=== PATIENT | female | born 1960 | race Caucasian/White ===

== ENCOUNTER 2016-03-31 15:53 | Emergency (ER) | payer BC, OTHER ==
[~2016-03-31] VITALS: Ht 165.1 cm; Wt 51.4 kg
[~2016-03-31 15:53] MED LIST: CIPR-255 PO
[2016-03-31 15:56] VITALS: TEMP 36.9; Ht 165.1 cm; Wt 51.4 kg
[2016-03-31 18:18] LABS: BASO % 0.4 %; BASO ABS # 0.03 K/uL (0-0.2); COMPLETE YES; EOS % 0.9 %; HEMATOCRIT 36.2 % (37-47); IG% 0.1 %; LYMPH % 18.4 %; LYMPH ABS # 1.26 K/uL (1.2-3.4); MEAN CELL VOLUME 91.2 fL (80-100); MEAN CORPUSCULAR HEMOGLOBIN 30.2 pg (25-34); MEAN CORPUSCULAR HGB CONC 33.1 g/dl (32-36); MEAN PLATELET VOLUME 9.6 fL (7.4-10.4); MONO % 8.1 %; NEUT % 72.1 %; PLATELET COUNT 250 K/uL (130-400); RED BLOOD COUNT 3.97 M/uL (4.2-5.4); WHITE BLOOD COUNT 6.83 K/uL (4.8-10.8)
[2016-03-31] MEDS ORDERED: CLON0.5T3 PO (18:20)
[2016-03-31 18:34] LABS: PARTIAL THROMBOPLASTIN RATIO 1.1; PROTHROMBIN TIME (PATIENT) 10.9 SECONDS (9.0-12.0)
[2016-03-31 18:36] LABS: BUN/CREATININE RATIO 14.1 (10-20); CALCIUM 9.2 mg/dl (8.5-10.1); CREATININE 0.66 mg/dl (0.60-1.20); POTASSIUM 3.4 mmol/L (3.5-5.1)
[2016-03-31 18:46] VITALS: BP 120/72; PULSE 68; O2SAT 100
[2016-03-31 18:46] LABS: ALB/GLOB RATIO 1.1 (0.9-2); THYROID STIMULATING HORMONE 1.26 uIu/ml (0.300-4.500)
--- NOTE | 2016-03-31 19:01 | EMERGENCY ROOM VISIT NOTE ---
History First contact with patient: 17:37 Chief Complaint: ED VAG BLEEDING Stated Complaint: HEAVY MENSTRUAL BLEEDING History of Present Illness The patient is a 55 year old female who presents to the Emergency Room with complaints of heavy vaginal bleeding. The patient reports that she has been having abnormal periods for the past year. She states that they have been closer together and heavier. She states that she has now had her period for 2 days and it has been very heavy. Yesterday, she was filling a super tampon every 2-3 hours. She states that today, she has been changing it every 1 hour. She sees her primary care provider for gynecological concerns. She called her primary care provider in the [facility] to make her an appointment tomorrow. The patient states that she is concerned she may be hemorrhaging. She denies any weakness or lightheadedness. She denies any history of anemia. She denies any abdominal pain or urinary symptoms. She has a history of fibroids. She denies history of bleeding disorders or anticoagulant use. Review of Systems A complete 10-point Review of Systems was discussed with the patient, with pertinent positives and negatives listed in the History of Present Illness. All remaining Review of Systems questions can be considered negative unless otherwise specified. Past Medical/Surgical History Medical Problems: (1) No Known Active Medical Problems Social History Smoking Status: Never Smoker Marital Status: Housing Status: lives with family Current/Historical Medications Miscellaneous Medications Clonazepam (Klonopin), 0.5 MG PO Allergies Coded Allergies: Sulfamethoxazole w/Trimethoprim (Verified Allergy, Intermediate, nightmares, 03/31/16) Uncoded Allergies: N (Allergy, Unknown, 04/25/02) NKA (Allergy, Unknown, 04/25/02) Physical Exam Vital Signs Date Time Temp Pulse Resp B/P Pulse Ox O2 Delivery O2 Flow Rate FiO2 03/31/16 18:46 68 18 120/72 100 Room Air 03/31/16 15:56 36.9 74 18 149/79 99 Room Air Physical Exam VITALS: Vitals are noted on the nurse's note and reviewed by myself. Vital signs stable. GENERAL: This is a 55-year-old female, in no acute distress, nondiaphoretic, well-developed well-nourished. SKIN: Capillary reflex less than 2 seconds. HEART: Regular rate and rhythm without murmurs gallops or rubs. LUNGS: Clear to auscultation bilaterally without wheezes, rales or rhonchi. ABDOMEN: Positive bowel sounds x 4. Soft, nontender to palpation. PELVIC: Moderate amount of dark red blood within the vaginal vault. The cervix is normal in appearance. NEURO: Patient was alert and oriented to person place and time. Medical Decision & Procedures Laboratory Results 03/31/16 18:00 Red Blood Count 3.97, Mean Corpuscular Volume 91.2, Mean Corpuscular Hemoglobin 30.2, Mean Corpuscular Hemoglobin Concent 33.1, Mean Platelet Volume 9.6, Neutrophils (%) (Auto) 72.1, Lymphocytes (%) (Auto) 18.4, Monocytes (%) (Auto) 8.1, Eosinophils (%) (Auto) 0.9, Basophils (%) (Auto) 0.4, Neutrophils # (Auto) 4.92, Lymphocytes # (Auto) 1.26, Monocytes # (Auto) 0.55, Eosinophils # (Auto) 0.06, Basophils # (Auto) 0.03 03/31/16 18:00 Test 03/31/16 18:00 White Blood Count 6.83 K/uL (4.8-10.8) Red Blood Count 3.97 M/uL (4.2-5.4) Hemoglobin 12.0 g/dL (12.0-16.0) Hematocrit 36.2 % (37-47) Mean Corpuscular Volume 91.2 fL (80-100) Mean Corpuscular Hemoglobin 30.2 pg (25-34) Mean Corpuscular Hemoglobin Concent 33.1 g/dl (32-36) Platelet Count 250 K/uL (130-400) Mean Platelet Volume 9.6 fL (7.4-10.4) Neutrophils (%) (Auto) 72.1 % Lymphocytes (%) (Auto) 18.4 % Monocytes (%) (Auto) 8.1 % Eosinophils (%) (Auto) 0.9 % Basophils (%) (Auto) 0.4 % Neutrophils # (Auto) 4.92 K/uL (1.4-6.5) Lymphocytes # (Auto) 1.26 K/uL (1.2-3.4) Monocytes # (Auto) 0.55 K/uL (0.11-0.59) Eosinophils # (Auto) 0.06 K/uL (0-0.5) Basophils # (Auto) 0.03 K/uL (0-0.2) RDW Standard Deviation 42.1 fL (36.4-46.3) RDW Coefficient of Variation 12.7 % (11.5-14.5) Immature Granulocyte % (Auto) 0.1 % Immature Granulocyte # (Auto) 0.01 K/uL (0.00-0.02) Prothrombin Time 10.9 SECONDS (9.0-12.0) Prothromb Time International Ratio 1.0 (0.9-1.1) Activated Partial Thromboplast Time 28.7 SECONDS (21.0-31.0) Partial Thromboplastin Ratio 1.1 Urine Color YELLOW Urine Appearance CLEAR (CLEAR) Urine pH 7.5 (4.5-7.5) Urine Specific [place] 1.000 (1.000-1.030) Urine Protein NEG (NEG) Urine Glucose (UA) NEG (NEG) Urine Ketones NEG (NEG) Urine Occult Blood 1+ (NEG) Urine Nitrite NEG (NEG) Urine Bilirubin NEG (NEG) Urine Urobilinogen NEG (NEG) Urine Leukocyte Esterase NEG (NEG) Urine WBC (Auto) 0 /hpf (0-5) Urine RBC (Auto) 0-4 /hpf (0-4) Urine Hyaline Casts (Auto) 0 /lpf (0-5) Urine Epithelial Cells (Auto) 5-10 /lpf (0-5) Urine Bacteria (Auto) NEG (NEG) Urine Test NEG (NEG) Anion Gap 10.0 mmol/L (3-11) Est Creatinine Clear Calc Drug Dose 80.0 ml/min Estimated GFR () 116.9 Estimated GFR (Non- 100.9 BUN/Creatinine Ratio 14.1 (10-20) Calcium Level 9.2 mg/dl (8.5-10.1) Total Bilirubin 0.4 mg/dl (0.2-1) Aspartate Amino Transf (AST/SGOT) 17 U/L (15-37) Alanine Aminotransferase (ALT/SGPT) 24 U/L (12-78) Alkaline Phosphatase 44 U/L (45-117) Total Protein 7.4 gm/dl (6.4-8.2) Albumin 3.9 gm/dl (3.4-5.0) Globulin 3.5 gm/dl (2.5-4.0) Albumin/Globulin Ratio 1.1 (0.9-2) Thyroid Stimulating Hormone (TSH) 1.260 uIu/ml (0.300-4.500) Medical Decision Differential diagnosis includes bleeding disorder, fibroids, menorrhagia, menopause, thyroid disorder, among others. The patient was evaluated as above. Labs were drawn and IV access was obtained. Labs revealed no anemia. There was no evidence of clotting disorder. TSH was within normal limits. A pelvic exam was unremarkable. After I told the patient that her blood counts were normal, she was very relieved and requested to go home. She is not having significant pain and while she may require an ultrasound in the future, I do not think that she needs one emergently. She will follow-up with her primary care provider tomorrow. She will return for any worsening symptoms. She verbalized understanding and was discharged home in good condition. Impression Primary Impression: Menorrhagia Departure Information Dispostion Home / Self-Care Condition GOOD Referrals Haleigh Hood (PCP) Patient Instructions My [facility] Additional Instructions You were evaluated in the emergency Department today for vaginal bleeding. Your blood work did not show any significant abnormalities. You will need to follow-up with your primary care provider within the next 1-2 days. You may require a referral to MOTOR [employer]SEM[employer] SUPERVISOR. You should return to the emergency department with worsening vaginal bleeding, pelvic pain, or any other new/concerning symptoms.
[2016-03-31 19:23] LABS: URINE APPEARANCE CLEAR (CLEAR); URINE BILIRUBIN NEG (NEG); URINE COLOR YELLOW; URINE NITRITE NEG (NEG); URINE PH 7.5 (4.5-7.5); UROBILINOGEN NEG (NEG); ZZUR CULT IF INDIC CLEAN CATCH NO
[2016-03-31 19:26] LABS: MANUAL MICROSCOPIC REQUIRED? NO; REVIEW REQ? NO
[2016-06-22] MEDS ORDERED: MAGN1TAB41 PO (11:09)
[2016-06-22] MEDS ORDERED: CHOL2000 PO (11:09)
[2016-06-22] MEDS ORDERED: OMEG10007 PO (11:09)
[2016-06-22] MEDS ORDERED: VNTHFA/IN INH (11:11)
== END 2016-03-31 19:15 | disposition home or self-care (01) ==
LOC: C.EDB 15:54
DX: N92.0 Excessive and frequent menstruation with regular cycle (principal)

== ENCOUNTER → 2016-04-12 | Outpatient (CLI) | payer BC ==
[~2016-04-12] MED LIST changes: +CHOL2000 PO; -CIPR-255 PO; +CLON0.5T3 PO; +MAGN1TAB41 PO; +OMEG10007 PO; +VNTHFA/IN INH
--- NOTE | 2016-04-12 11:42 | DIAGNOSTIC IMAGING REPORT ---
EXAMINATION: PELVIC ULTRASOUND CLINICAL HISTORY: Menorrhagia COMPARISON STUDY: None FINDINGS: The uterus measured 10.7 x 7.3 x 7.7 cm. There are multiple large fibroids. There are 3 right-sided fibroids measuring 3.7 x 2.3 x 1.8 cm. There is a pedunculated left fibroid measuring 2.5 cm as well as a 17 mm left-sided fibroid.. The endometrial stripe measured 18 mm. The right ovary measured 37 x 42 x 17 mm. There is a 3 cm right ovarian cyst, containing either a mural nodule or internal debris... The left ovary measured 29 x 23 x 37 mm.. There is no ultrasonographic evidence of ovarian torsion. It should be noted that ovarian torsion can be present with normal Doppler ultrasonographic findings. There was no evidence of pathologic free pelvic fluid. IMPRESSION: 1. Distortion of the uterus secondary to multiple fibroids. Also evident is a pedunculated 17 mm left-sided fibroid 2. Mild thickening of the endometrial stripe measuring 18 mm 3. 3 cm complex right ovarian cyst containing internal debris versus a mural nodule. A 6 week follow-up study is recommended. Electronically signed by: Shabbir Hayden M.D. 04/12/2016 11:40 AM Dictated Date/Time: 04/12/2016 11:35 AM
== END | disposition home or self-care (01) ==
LOC: C.ULTR 10:10
PROVIDERS: ATTEND Nurse Practitioner Family
DX: N92.0 Excessive and frequent menstruation with regular cycle (principal); Q51.9 Congenital malformation of uterus and cervix, unspecified; D25.9 Leiomyoma of uterus, unspecified; N83.201 Unspecified ovarian cyst, right side

== ENCOUNTER → 2016-05-02 | Outpatient (CLI) | payer BC | END | disposition home or self-care (01) | LOC: C.PAPS 15:57 | PROVIDERS: ATTEND Obstetrics & Gynecology | DX: N92.0 Excessive and frequent menstruation with regular cycle (principal) ==

== ENCOUNTER → 2016-05-02 | Outpatient (CLI) | payer BC | END | disposition home or self-care (01) | LOC: C.PATHSPEC 13:48 | PROVIDERS: ATTEND Obstetrics & Gynecology | DX: N92.0 Excessive and frequent menstruation with regular cycle (principal) ==

== ENCOUNTER → 2016-08-01 | Day surgery (SDC) | payer BC ==
[2016-06-22 11:09] VITALS: Ht 162.6 cm; Wt 50.0 kg
[~2016-08-01] VITALS: Ht 162.6 cm; Wt 50.0 kg
[~2016-08-01] MED LIST changes: +ATROPINE SULFATE 0.1 MG/ML 5ML SYR IV PRN; +DEXAMETHASONE SOD INJ 4 MG/ML VIAL ONE; +EpHEDrine SULFATE INJ 50 MG/ML AMP IV PRN; +FENTANYL CITRATE INJ 50 MCG/1 ML 2 ML VIAL IV PRN; +FENTANYL CITRATE INJ 50 MCG/1 ML 2 ML VIAL ONE; +IBUPROFEN 600 MG TAB PO PRN; +LACTATED RINGER'S 1000ML 1,000 ML IV SCH; +LIDOCAINE HCL 2% 2 ML VIAL (20MG/ML) ONE; +MIDAZOLAM HCL 1 MG/ML 2ML VIAL ONE; +ONDANSETRON INJ 2 MG/ML 2 ML VIAL IV PRN; +ONDANSETRON INJ 2 MG/ML 2 ML VIAL ONE; +OXYCODONE/ACETAMINOPHEN 5-325 TAB PO PRN; +PROMETHAZINE HCL INJ 25 MG in SODIUM CHLORIDE 0.9% 50ML 50 ML IV PRN; +PROPOFOL IV EMULSION 10 MG/ML 20 ML VIAL IV ONE; +SODIUM CHLORIDE 0.9% 1000ML 1,000 ML IV SCH
--- NOTE | 2016-08-01 06:57 | History & Physical Bridge - SC ---
H&P Re-Evaluation Bridge Note: I have examined the patient, reviewed the History & Physical and in the interval since the performance of the History & Physical I have noted the following changes of clinical significance: No changes noted
--- NOTE | 2016-08-01 07:32 | [facility] Post Operative Brief Note ---
Immediate Operative Summary Operative Date August 01, 2016. Pre-Operative Diagnosis Endometrial Polyp Post-Operative Diagnosis Same Procedure(s) Performed Dilatation And Curettage, Hysteroscopy, Polypectomy Surgeon Dr. Rodriguez Railroad Inspector Surgeon(s) None Estimated Blood Loss 5 mL Findings Uterus sounded to 9cm. Bilateral tubes visualized. 2 polyps visualized - one anterior and one posterior. Small amount of endometrial curettings obtained. Specimens A. Endometrial Curettage Drains bladder drained prior to procedure 5cc Anesthesia general Complication(s) None Disposition Recovery Room / PACU
--- NOTE | 2016-08-01 07:35 | Discharge Instructions-SurgCtr ---
Discharge Instructions Date of Service August 01, 2016. Visit Reason for Visit: Uterine Polyp Discharge Discharge Diagnosis / Problem: uterine polyp Discharge Goals Goal(s): Diagnostic testing, Therapeutic intervention Activity Recommendations Activity Limitations: per Instructions/Follow-up section Anesthesia . Post Anesthesia Instructions: If you have had General Anesthesia or IV Sedation: * Do not drive today. * Resume driving when surgeon permits. * Do not make important decisions or sign legal documents today. * Call surgeon for: 1. Temperature elevations greater than 101 degrees F. 2. Uncontrollable pain. 3. Excessive bleeding. 4. Persistent nausea and vomiting. 5. Medication intolerance (nausea, vomiting or rash). * For nausea and vomiting use only clear liquids such as: tea, soda, bouillon until nausea subsides, then gradually increase diet as tolerated. * If you have any concerns or questions, call your surgeon's office. If physician is unavailable and it is an emergency, call 911 or go to the nearest emergency room. . Instructions / Follow-Up Instructions / Follow-Up ACTIVITY RECOMMENDATIONS: * Avoid tampons, douching, hot tubs, pools, and intercourse until bleeding has stopped. * May shower as usual. * No strenuous activity for 24-48 hours. After 24-48 hours, you may do anything you feel like doing (driving and sports are okay). SPECIAL CARE INSTRUCTIONS: Special Diet: * Mild nausea may occur in the immediate post-operative period. * Take clear liquids such as tea, cola or bouillon until all nausea has subsided; you may then resume your normal diet. Special Care: * Light bleeding and vaginal spotting can last from a few days to 3-4 weeks. Call your doctor if bleeding becomes heavier than the heaviest part of your period. * Check your temperature twice a day for one week. If it goes above 100.4 degrees Fahrenheit (38.0 Celsius), notify your doctor. * Call your doctor's office for an appointment for 2 weeks after your surgery. FOLLOW-UP VISIT: Call your doctor's office for an appointment for 2 weeks after your surgery. Diet Recommendations Home Diet: resume previous diet Procedures Procedures Performed: Dilatation And Curettage, Hysteroscopy, Polypectomy Pending Studies Studies pending at discharge: yes List of pending studies: Pathology Medical Emergencies . Who to Call and When: Medical Emergencies: If at any time you feel your situation is an emergency, please call 911 immediately. . Non-Emergent Contact Non-Emergency issues call your: Primary Care Provider, Cabana Attendant . . "Provider Documentation" section prepared by Tiana Rodriguez. .
--- NOTE | 2016-08-01 08:06 | OPERATIVE REPORT ---
DATE OF OPERATION: 08/01/2016 PREOPERATIVE DIAGNOSIS: Endometrial polyp. POSTOPERATIVE DIAGNOSIS: Same. PROCEDURES PERFORMED: Hysteroscopy, dilation and curettage and polypectomy with MyoSure device. SURGEON: Dr. Rodriguez. SAND CASTER APPRENTICE: None. ESTIMATED BLOOD LOSS: 5 mL. FINDINGS: Uterus sounded to 9 cm. Bilateral fallopian tubes were visualized, 2 polyps visualized, 1 anterior and 1 posterior, small amount of endometrial curettings obtained. SPECIMENS: Endometrial curettage. DRAINS: Bladder drained prior to the procedure, 5 mL of urine. ANESTHESIA: General. COMPLICATIONS: None. DISPOSITION: Stable and good to recovery room. INDICATIONS FOR PROCEDURE: The patient is a 56-year-old who was undergoing workup for heavy periods and was found to have endometrial polyp on saline infusion sonogram. Ultrasound also showed small uterine fibroids. Additionally, endometrial biopsy was negative. DESCRIPTION OF PROCEDURE: The patient was seen in the preoperative holding area where all questions were answered. Risks, benefits, alternatives were reviewed. She elected to proceed with surgery. She had previously signed informed consent in the office under no duress. The patient was taken to the operating room where general anesthesia was introduced. A timeout was confirmed. She was placed in the dorsal lithotomy position with feet in candy cane stirrups. Bladder was drained. The weighted speculum was placed in the vagina and cervix was visualized and the anterior lip was grasped with a single-tooth tenaculum. The uterus was sounded to 9 cm. The cervix was sequentially dilated to admit the MyoSure hysteroscope. The hysteroscope was inserted, pictures were taken and the above noted findings were discovered. Using the MyoSure device polypectomy was performed and this specimen was retained to be sent to pathology. The MyoSure device and hysteroscope were removed and a gentle curettage was undertaken with a sharp curette. These samples were also sent with the pathology specimen. All instruments were removed from the vagina. There was noted to be excellent hemostasis and the patient was awoken from anesthesia and taken to the postoperative recovery area in stable and good condition. I attest to the content of the Intraoperative Record and any orders documented therein. Any exceptio ns are noted below.
[2016-08-01 08:33] VITALS: TEMP 36.9
--- NOTE | 2016-08-01 08:35 | Anesthesia Progress Nt - [facility] ---
Anesthesia Post Op Note Date & Time August 01, 2016 at 08:35 Vital Signs Pain Intensity: 0 Vital Signs Past 12 Hours Date Time Temp Pulse Resp B/P Pulse Ox O2 Delivery O2 Flow Rate FiO2 08/01/16 08:33 36.9 50 20 107/67 100 Room Air 08/01/16 08:11 61 20 109/66 99 08/01/16 08:11 61 20 08/01/16 08:09 36.6 62 18 109/66 99 Room Air 08/01/16 08:06 55 16 104/62 99 08/01/16 08:06 55 16 08/01/16 08:01 53 17 08/01/16 08:01 54 17 102/65 100 08/01/16 07:56 53 24 101/64 100 08/01/16 07:56 53 24 08/01/16 07:51 54 8 08/01/16 07:51 54 8 109/64 100 08/01/16 07:46 55 19 105/63 100 08/01/16 07:46 56 19 08/01/16 07:41 56 14 08/01/16 07:41 56 14 96/61 100 08/01/16 07:36 59 14 103/60 100 08/01/16 07:36 59 14 08/01/16 07:35 36.2 67 16 111/65 99 Mask 6 08/01/16 07:32 111/65 08/01/16 06:35 36.6 70 16 117/71 100 Room Air Notes Mental Status: alert / awake / arousable, participated in evaluation Pt Amnestic to Procedure: Yes Nausea / Vomiting: adequately controlled Pain: adequately controlled Airway Patency, RR, SpO2: stable & adequate BP & HR: stable & adequate Hydration State: stable & adequate Anesthetic Complications: no major complications apparent
[2016-08-01 08:47] VITALS: BP 107/67; PULSE 51; O2SAT 100
== END | disposition home or self-care (01) ==
LOC: X.SURG 06:27
PROVIDERS: ATTEND Obstetrics & Gynecology
DX: N84.0 Polyp of corpus uteri (principal); D21.9 Benign neoplasm of connective and other soft tissue, unspecified; N92.0 Excessive and frequent menstruation with regular cycle; Z83.79 Family history of other diseases of the digestive system

== ENCOUNTER 2023-11-07 17:11 | Inpatient (IN) ==
[2023-11-07 17:58] LABS: Appearance Urine Clear (Clear); Bacteria Urine Automated None Seen (None Seen); Bilirubin Urine Negative (Negative); Blood Urine Trace (Negative); Cast Urine Automated 0-2 /lpf (0-2); Color Urine Yellow; Epithelial Cell Urine Auto 0-2 /hpf (0-2); Glucose Urine UA Negative (Negative); Ketones Urine Negative (Negative); Leukocyte Esterase Urine Negative (Negative); Nitrite Urine Negative (Negative); Protein Urine Negative (Negative); Specific Gravity Urine 1.013 (1.000-1.030); Urobilinogen Urine Negative (Negative); WBC Urine Automated 0-5 /hpf (0-5)
[2023-11-07 18:41] LABS: Amphetamines+Metham, Urine Neg (Neg); Barbiturates, Urine Neg (Neg); Benzodiazepine, Urine Pos (Neg); Cocaine, Urine Neg (Neg); Fentanyl, Urine Neg (Neg); MDMA (Ecstacy), Urine Neg (Neg); Marijuana, Urine Neg (Neg); Methadone, Urine Neg (Neg); Opiate, Urine Neg (Neg); Phencyclidine, Urine Neg (Neg)
[2023-11-07] MEDS: LORazepam 1 MG TAB PO STA (19:09)
--- NOTE | 2023-11-07 19:10 | Emergency Department Note ---
Impression & Plan Depression, Anxiety, Insomnia ED Provider Note NAME: BENSON SMITH AGE: 63 SEX: F : 1960 ARRIVES VIA: Walk-In INFORMANT: Patient, the patient's daughter ED PROVIDER(S): Timothy Rick DO CHIEF COMPLAINT: Mental health evaluation HPI: The patient is a 63-year-old female who presented to the emergency department for a mental health evaluation. The patient has been having problems with anxiety as well as insomnia. The patient has vague suicidal ideation but mostly surrounded by the fact that she has had significant medical issues especially through the summer. She went to see her therapist today and was told to come the emergency department for possible admission and inpatient management for mental health issues. The patient denies having any coughing or fever. She denies having any abdominal pain or chest pain. The patient's been having racing thoughts as well. ROS: See above HPI for pertinent positives & negatives. A total of 10 systems reviewed and were otherwise negative. PAST MEDICAL HISTORY: See Below PAST SURGICAL HISTORY: See Below FAMILY HISTORY: See Below SOCIAL HISTORY: See Below HOME MEDICATIONS: See Below ALLERGIES: See Below VITALS: See Below PHYSICAL EXAMINATION: GENERAL: The patient is awake and alert. The patient is anxious appearing. EYES: The conjunctivae are clear. The pupils are round and reactive. EARS, NOSE, MOUTH AND THROAT: The nose is without any evidence of any deformity. NECK: The neck is nontender and supple. RESPIRATORY: Normal respiratory effort is noted there is no evidence of wheezing rhonchi or rales CARDIOVASCULAR: Regular rate and rhythm noted there no murmurs rubs or gallops normal S1 normal S2. GASTROINTESTINAL: The abdomen is soft. Abdomen is nontender. MUSCULOSKELETAL/EXTREMITIES: There is no evidence of gross deformity full range of motion is noted in the hips and shoulders. SKIN: There is no obvious evidence of any rash. There are no petechiae, pallor or cyanosis noted. NEUROLOGIC: Patient is awake alert and oriented x3 strength is symmetric patellar reflexes are 2+ bilaterally PSYCH: The patient is awake and alert. She her affect is very animated. She appears anxious. MEDICAL DECISION MAKING: The patient is a 63-year-old female who presented to the emergency department for an evaluation of anxiety. The patient's had the symptoms ongoing since July. She has been receiving treatment via medicines as well as [id number] visits over the course the last few months. Her condition continues to worsen. The patient presented to the emergency department because she think she may need inpatient treatment. The patient was medically cleared in the emergency department. She was evaluated by the mental health rn case mgr. She was felt to be a good candidate for inpatient management and was referred to [facility]. They did reevaluate the patient and feel that she is a good candidate. She was able to be taken to [facility]. for further management. 201 was signed by myself. Triage Nursing notes reviewed. Prior medical records reviewed Vital Signs: reviewed and remarkable for no significant abnormalities Differential diagnosis: Mood disorder, infection, hypoglycemia, electrolyte abnormalities, cardiac sources, intracerebral event, toxicologic, trauma, neurologic, as well as other pathologies. ER treatment provided: See below Diagnostics interpreted by me: ECG: EKG was obtained in the emergency department. My interpretation is normal sinus rhythm at 66 bpm. There was no ectopy. Nonspecific T wave inversions were noted. This was compared to a tracing from August 12, 2023. No changes were noted. Laboratory studies: As stated above and show below. Imaging studies: See below. Consultation(s): I discussed this case with the emergency department off rn case mgr. Past Med/Surg History Problem List (Updated 11/08/23 @ 02:05 by Timothy Rick DO) Insomnia (Acute) Anxiety (Acute) Depression (Acute) Cognitive and neurobehavioral dysfunction H/o Lyme disease Lyme disease Bartonellosis Vitamin D deficiency Panic disorder MARCIA (generalized anxiety disorder) Hematuria (Acute) Menorrhagia (Acute) UTI (urinary tract infection) (Acute) Surgical History H/O oral surgery Family History Sister Thyroid ca Father Crohn's disease Daughter Lupus Social History Smoking Status: Never smoker Second Hand Exposure: No; Do You Dip or Chew Tobacco: No; Hx Alcohol Use: No Preferred Language: Mongolian Communication Ability: Effective Ammonia Distiller Required: No Beliefs That Will Affect Care: None Feels Safe at Home: Yes Gender Identity: Female Assistive Devices: Glasses Allergies Allergies Allergy/AdvReac Type Severity Reaction Status Date / Time Bactrim AdvReac Intermediate NIGHTMARES Verified 08/01/16 06:39 sulfamethoxazole [Bactrim] AdvReac Intermediate NIGHTMARES Verified 08/31/23 13:55 trimethoprim [Bactrim] AdvReac Intermediate NIGHTMARES Verified 08/31/23 13:55 Home Meds Home Medications Medication Instructions Recorded Confirmed cholecalciferol (vitamin D3) 50 50 mcg PO DAILY ##0 06/22/16 11/07/23 mcg (2,000 unit) tablet (Vitamin D3) omega 1-mlc-ibb-fish oil 1,000 mg 1 cap PO DAILY ##0 06/22/16 11/07/23 (120 mg-180 mg) capsule (Fish Oil) clonidine HCl 0.1 mg tablet 0.05 mg PO BID 08/12/23 11/07/23 progesterone micronized 100 mg 100 mg PO HS 08/12/23 11/07/23 capsule vitamin B complex 1 tab PO DAILY 08/12/23 11/07/23 zolpidem 5 mg tablet 5 - 10 mg PO HS PRN Sleep 08/12/23 11/07/23 mirtazapine 30 mg tablet 15 mg PO HS 08/29/23 11/07/23 Arches Tinnitus formula 2 cap PO DAILY 08/31/23 11/07/23 citicoline 500 mg capsule 250 mg PO DAILY 08/31/23 11/07/23 gabapentin 100 mg capsule 300 mg PO HS 08/31/23 11/07/23 magnesium chelate, malate 400 mg PO DAILY 08/31/23 11/07/23 diazepam 5 mg tablet 5 mg PO HS 11/07/23 11/07/23 doxycycline hyclate 100 mg capsule 100 mg PO BID 11/07/23 11/07/23 Results & Data (ED) Vital Signs Vital Signs - 24 hr 11/07/23 17:17 11/07/23 19:16 Temperature 36.5 C Temperature Source Temporal Artery Scan Pulse Rate 72 Pulse Rate [Finger] 77 Respiratory Rate 18 18 Blood Pressure 138/81 Blood Pressure [Right Arm] 132/78 Blood Pressure Mean 100 Blood Pressure Mean [Right Arm] 96 Pulse Oximetry 96 96 Oxygen Delivery Method Room Air Room Air Sepsis Recent Fever Within 48 Hours No Sepsis New/Unexplained Change in Mental Status N/A Sepsis Action Taken by Nursing No Action Required Home Medications Current Medication List: was personally reviewed by me Laboratory Data Attestation: I reviewed the patient's lab results. 11/07/23 19:02 11/07/23 19:02 Lab Results 11/07/23 11/07/23 11/07/23 Range/Units 17:34 19:00 19:02 WBC 7.14 (4.8-10.8) K/ul RBC 4.26 (4.20-5.40) M/uL Hgb 12.8 (12.0-16.0) g/dl Hct 38.3 (37.0-47.0) % MCV 89.9 (80.0-100.0) fL MCH 30.0 (25.0-34.0) pg MCHC 33.4 (32.0-36.0) g/dL RDW Std Deviation 42.1 (36.4-46.3) fL RDW Coeff of Nadege 12.9 (11.5-14.5) % Plt Count 317 (130-400) K/uL MPV 9.1 L (9.4-12.4) fL Immature Gran % (Auto) 0.4 % Neut % (Auto) 68.4 % Lymph % (Auto) 24.2 % [place] % (Auto) 5.0 % Eos % (Auto) 1.4 % Baso % (Auto) 0.6 % Neut # (Auto) 4.88 (1.40-6.50) K/uL Lymph # (Auto) 1.73 (1.20-3.40) K/uL [place] # (Auto) 0.36 (0.11-0.59) K/uL Eos # (Auto) 0.10 (0.00-0.50) K/uL Baso # (Auto) 0.04 (0.00-0.20) K/uL Immature Gran # (Auto) 0.03 (0.01-0.20) K/uL Sodium 139 (136-145) mmol/L Potassium 3.6 (3.5-5.1) mmol/L Chloride 104 (98-107) mmol/L Carbon Dioxide 27 (21-32) mmol/L Anion Gap 8 (3-11) BUN 21 (6-23) mg/dl Creatinine 0.71 (0.6-1.2) mg/dl Est Cr Clr Drug Dosing 66.7 ml/min Est GFR ( Amer) 106.5 ml/min Est GFR (Non-Af Amer) 91.9 ml/min BUN/Creatinine Ratio 29.6 H (10-20) Glucose 110 H (70-99(Fasting)) mg/dl Calcium 9.5 (8.6-10.3) mg/dl Total Bilirubin 0.3 (0.2-1.0) mg/dl AST 20 (13-39) U/L ALT 16 (7-52) U/L Alkaline Phosphatase 44 (34-104) U/L Total Protein 7.4 (6.0-8.3) gm/dl Albumin 4.5 (3.4-5.0) gm/dl Globulin 2.9 (2.5-4.0) gm/dl Albumin/Globulin Ratio 1.6 (0.9-2) TSH 0.973 (0.300-4.500) uIu/ml Urine Color Yellow Urine Appearance Clear (Clear) Urine pH 7.0 (4.5-7.5) Ur Specific [place] 1.013 (1.000-1.030) Urine Protein Negative (Negative) Urine Glucose (UA) Negative (Negative) Urine Ketones Negative (Negative) Urine Blood Trace H (Negative) Urine Nitrite Negative (Negative) Urine Bilirubin Negative (Negative) Urine Urobilinogen Negative (Negative) Ur Leukocyte Esterase Negative (Negative) Urine WBC (Auto) 0-5 (0-5) /hpf Urine RBC (Auto) 6-10 H (0-2) /hpf U Hyaline Cast (Auto) 0-2 (0-2) /lpf U Epithel Cells (Auto) 0-2 (0-2) /hpf Urine Bacteria (Auto) None Seen (None Seen) Salicylates < 3.0 L (3.0-30) mg/dl Urine Opiates Screen Neg (Neg) Ur Methadone, Qual Neg (Neg) Urine Fentanyl Screen Neg (Neg) Acetaminophen < 3 L (10-30) ug/ml Urine Barbiturates Neg (Neg) Ur Phencyclidine (PCP) Neg (Neg) U Amphetamin/Meth Scrn Neg (Neg) MDMA (Ecstasy) Screen Neg (Neg) U Benzodiazepines Scrn Pos H (Neg) Ur Cocaine Metabolite Neg (Neg) U Marijuana (THC) Screen Neg (Neg) Ethyl Alcohol mg/dL < 10.0 (<10.0) mg/dl SARS-CoV-2, RNA, NAAT NEGATIVE (NEGATIVE) Administered Medications Discontinued Medications Lorazepam (Lorazepam 1 Mg Tab) 1 mg PO NOW STA Stop: 11/07/23 18:56 Last Admin: 11/07/23 19:09 Dose: 1 mg Documented By: OLIVIA Temazepam (Temazepam 15 Mg Capsule) 15 mg PO ONE STA Stop: 11/08/23 00:39 Last Admin: 11/08/23 01:00 Dose: 15 mg Documented By: KEVIN Discharge Plan Visit Data Chief Complaint: Mental Health Evaluation Stated Complaint: MENTAL HEALTH ED Provider: Timothy Rick Discharge Problem: Depression, Anxiety, Insomnia Patient Disposition: Admitted As Inpatient Discharge Instructions Interventions: ED Discharge Assessment Last Done: 11/07/23 23:41 Discharge Problem: Depression Qualifiers: Depression Type: unspecified Qualified Code(s): F32.A - Depression, unspecified Insomnia Qualifiers: Insomnia type: unspecified Qualified Code(s): G47.00 - Insomnia, unspecified
[2023-11-07 19:25] LABS: Basophils # (auto) 0.04 K/uL (0.00-0.20); Basophils % (auto) 0.6 %; Eosinophils % (auto) 1.4 %; Hematocrit (blood only) 38.3 % (37.0-47.0); Hemoglobin 12.8 g/dl (12.0-16.0); Immature Granulocytes # (auto) 0.03 K/uL (0.01-0.20); Immature Granulocytes % (auto) 0.4 %; Lymphocytes # (auto) 1.73 K/uL (1.20-3.40); Lymphocytes % (auto) 24.2 %; Mean Corpuscular Hgb Conc 33.4 g/dL (32.0-36.0); Mean Corpuscular Volume 89.9 fL (80.0-100.0); Mean Platelet Volume 9.1 fL (9.4-12.4); Monocytes # (auto) 0.36 K/uL (0.11-0.59); Neutrophils # (auto) 4.88 K/uL (1.40-6.50); Neutrophils % (auto) 68.4 %; Platelet Count 317 K/uL (130-400); RDW Coefficient of Variation 12.9 % (11.5-14.5); RDW Standard Deviation 42.1 fL (36.4-46.3); Red Blood Count 4.26 M/uL (4.20-5.40); White Blood Count 7.14 K/ul (4.8-10.8)
[2023-11-07 20:12] LABS: Albumin Globulin Ratio 1.6 (0.9-2); Albumin Level 4.5 gm/dl (3.4-5.0); BUN Creatinine Ratio 29.6 (10-20); Bilirubin,Total 0.3 mg/dl (0.2-1.0); Calcium 9.5 mg/dl (8.6-10.3); Creatinine Clr Calc Pharmacy 66.7 ml/min; Est GFR (African American) 106.5 ml/min; Est GFR (Non-African American) 91.9 ml/min; Globulin 2.9 gm/dl (2.5-4.0); Potassium 3.6 mmol/L (3.5-5.1); Total Protein 7.4 gm/dl (6.0-8.3)
[2023-11-07 20:21] LABS: Acetaminophen < 3 ug/ml (10-30); Salicylate < 3.0 mg/dl (3.0-30)
[2023-11-07 20:26] LABS: Thyroid Stimulating Hormone 0.973 uIu/ml (0.300-4.500)
[2023-11-07] MEDS ORDERED: ALUMINUM/MAGNESIUM SUSP 30 ML UDC PO PRN (23:55)
[2023-11-07] MEDS ORDERED: hydrOXYzine HCl 25 MG TAB PO PRN (23:55)
[2023-11-07] MEDS ORDERED: BISMUTH SUBSALICYLATE LIQD 236 ML PO PRN (23:55)
[2023-11-07] MEDS ORDERED: MAGNESIUM HYDROXIDE SUSP 30 ML UDC PO PRN (23:55)
[2023-11-07] MEDS ORDERED: SODIUM CHLORIDE 0.65% NA SOLN 45 ML (OCEAN) PRN (23:55)
[2023-11-08] MEDS: TEMAZEPAM 15 MG CAPSULE PO STA (01:00)
[2023-11-08] MEDS: hydrOXYzine HCl 25 MG TAB PO PRN (02:39)
[2023-11-08] MEDS: ACETAMINOPHEN 325 MG TAB PO PRN (02:39)
--- OUTSIDE RECORDS SUMMARY | 2023-11-08 09:34 | External Medical Summary | Continuity of Care Document ---
Author Name Unknown Organization [facility] Address [address] [place] [id number] Care Team Providers Care Site Manager Name Role Phone Selene Mulligan Yesica Primary Care Physician [phone] [facility] [phone] Date(s): 10/20/23 - 10/20/[address] [phone] Encounter Diagnosis Headache, migraine(Discharge Diagnosis) - 10/20/23 Headache(Discharge Diagnosis) - 10/20/23 Discharge Disposition: Home or Self Care Attending Physician: DO Centeno Michael R Referring Physician: MD Teresa, Zack Toussaint Allergies, Adverse Reactions, Alerts Substance Criticality Severity Reaction Reaction Severity Status Bactrim Nightmares Active Functional Status 10/20/23 Neurological Symptoms None ADLs Independent Facial Symmetry Symmetric Gait Unable to assess Swallowing Difficulty NPO Level of Consciousness Neuro Alert Hallucinations Present None Speech Pattern Clear 10/20/23 History of Fall in Last 3 Months Goodwin N o Presence of Secondary Diagnosis Goodwin Ye s Use of Ambulatory Aid Goodwin None/bedrest /nurse assist IV/Heparin Lock Fall Risk Goodwin Yes Gait/Transferring Fall Risk Goodwin Weak Mental Status Fall Risk Goodwin Oriented t o own ability Goodwin Fall Risk Score 45 Goodwin Fall Risk Low Risk Medications albuterol CFC free 90 mcg/inh MDI Start: 10/20/22 4:57:00 PM EDT, 2 puff, inhaled, qid, Disp# 3 each, Refills: 3, PRN: as needed for wheezing, Pharmacy: [facility] Start Date: 10/20/22 Status: Ordered Cranberry Start: 06/01/18 2:21:00 PM EDT Start Date: 06/01/18 Status: Ordered EPA Fish Oil oral capsule Start: 06/16/14 9:31:00 AM EDT, 1 cap, PO, Daily, 2000mg with EPA/DHA Start Date: 06/16/14 Status: Ordered ibuprofen 200 mg oral tablet Start: 10/04/13 11:00:00 AM EDT, 2 tab, PO, q6h, PRN: as needed for pain Start Date: 10/04/13 Status: Ordered KlonoPIN 0.5 mg oral tablet Start: 11/12/19 1:36:00 PM EDT, See Instructions, Disp# 20 tab, Refills: 1, one half to one tab PO daily prn, PRN: anxiety and muscle spasm, Pharmacy: [id number] Start Date: 11/12/19 Status: Ordered magnesium aspartate Start: 09/05/19 3:34:00 PM EDT Start Date: 09/05/19 Status: Ordered turmeric 500 mg oral capsule Start: 06/01/18 2:20:00 PM EDT Start Date: 06/01/18 Status: Ordered Vitamin D3 2000 intl units oral capsule Start: 03/18/13 8:59:00 AM EST, 1 cap, PO, Daily Start Date: 03/18/13 Status: Ordered Problem List Condition Confirmation Course Effective Dates Status Health atus Informant Bipolar disorder 1 Confirmed Active Exercise induced bronchospasm Confirmed Active Fatigue Confirmed Active Arthralgia Confirmed Active Lyme disease Confirmed Active Cervicalgia Confirmed Active Nevus Confirmed Active Muscle spasm Confirmed Active 1followed by Dr. Luu Diagnosis Diagnosis Type Effective Dates Health Status inical Service Informant Headache, migraine Discharge Diagnosis 10/20/23 Non-Specified Headache Discharge Diagnosis 10/20/23 Non-Specified Procedures Procedure Date Related Diagnosis Body Site Status Polypectomy 1, 2 08/01/16 Complete d PAP test date 3 05/03/16 Completed Endometrial biopsy 4 05/02/16 Comp leted US EXAM PELVIC COMPLETE 5 04/12/16 Completed Shave biopsy 09/10/15 Completed 1D and C, and hysterscopy. 2Pathology results: Endometrium, curettage 1) Fragments of proliferative endometrium 2) Focal fragments with features suggestive of lower uterine segment polyp 3) Negative for hyperplasia and malignancy 3WNL 4Benign secretory phase endometrium Negative for hyperplasia and carcinoma 51. Distortion o the uterus secondary to multiple fibroids. Also evident is a pedunculated 17 mm left-sided fibroid. 2. Mild thickening of the endometrial strip measuring 18 mm 3. 3 cm complex right ovarian cyst containing internal debris versus a mural nodule. A 6 week follow-up study is recommended. Results Laboratory List Name Date C Reactive Protein, Quantitation (CRP, Q uantitation) 10/20/23 Erythrocyte Sedimentation Rate (ESR) 10/19 Partial Thromboplastin Time (PTT) 10/20/23 Prothrombin Time w/ INR (PT/INR) 10/20/23 Complete Blood Count w Differential (CBC w Platelets and Diff) 10/20/23 Most recent to oldest [Reference Range]: 1 CReacProt [<0.50 mg/dL] <0.30 mg/dL (10/20/23 10:45 AM) MPV [9.0-12.2 fL] 9.3 fL (10/20/23 10:45 AM) Immature Gran% 0.3 % (10/20/23 10:45 AM) Neut% 68.4 % (10/20/23 10:45 AM) Lymph% 23.8 % (10/20/23 10:45 AM) Desha% 4.8 % (10/20/23 10:45 AM) Baso% 0.7 % (10/20/23 10:45 AM) Eos% 2.0 % (10/20/23 10:45 AM) Immat Gran, Abs [0-0.4 K/uL] 0.02 K/uL (10/20/23 10:45 AM) Neut, Abs [2.0-7.7 K/uL] 4.11 K/uL (10/20/23 10:45 AM) Lymph, Abs [1.0-3.4 K/uL] 1.43 K/uL (10/20/23 10:45 AM) Desha, Abs [0-1.0 K/uL] 0.29 K/uL (10/20/23 10:45 AM) Baso, Abs [0-0.1 K/uL] 0.04 K/uL (10/20/23 10:45 AM) Eos, Abs [0-0.5 K/uL] 0.12 K/uL (10/20/23 10:45 AM) Type of Diff: AUTO (10/20/23 10:45 AM) RDW [11.5-14.2 %] 12.7 % (10/20/23 10:45 AM) ESR [0-30 mm/hr] 5 mm/hr (10/20/23 10:45 AM) Hct [35-44 %] 38.2 % (10/20/23 10:45 AM) Hgb [11.7-15.0 g/dL] 12.9 g/dL (10/20/23 10:45 AM) INR [0.9-1.1] 1.1 1 (10/20/23 10:45 AM) MCH [28-33 pg] 30.5 pg (10/20/23 10:45 AM) MCHC [32-36 g/dL] 33.8 g/dL (10/20/23 10:45 AM) MCV [81-96 fL] 90.3 fL (10/20/23 10:45 AM) Plts [150-350 K/uL] 268 K/uL (10/20/23 10:45 AM) PT [12.0-14.2 seconds] 13.9 seconds (10/20/23 10:45 AM) PTT [23-35 seconds] 33 seconds (10/20/23 10:45 AM) RBC [3.90-5.00 M/uL] 4.23 M/uL (10/20/23 10:45 AM) WBC [4.0-10.4 K/uL] 6.01 K/uL (10/20/23 10:45 AM) 1Result Comment: Suggested therapeutic range for low-intensity Coumadin therapy for venous thromboembolism is INR 2.0-3.0 (ex: atrial fibrillation, history of TIA/stroke). For high risk patients, the suggested therapeutic range is INR 2.5-3.5 (ex: mechanical prosthetic valves). Radiology Reports * Exam Date Time Procedure Performing Provider Status 10/20/23 11:[address] Angio Brain/Head Nani Schreiber; Final Notes: (CT Angio Brain/Head) Reason For Exam: SAH CT Angio Brain/Head EXAMINATION: CT Angio Brain/Head CLINICAL HISTORY: [facility]H COMPARISON: Outside MRI 10/20/2023 TECHNIQUE: CT Angio Brain/Head CONTRAST: Omnipaque 350 75.00mL DOSE: Total Reported Dose Length Product (DLP) = 1738.84 mGy.cm FINDINGS: Head CT: Cerebral parenchyma: Normal sawyer-white differentiation. No hemorrhage. Extra-axial spaces: No extra-axial collection. Ventricles: No hydrocephalus. Mass effect: None. Basal cisterns: Preserved. Posterior fossa: No tonsillar herniation. Calvarium: Intact. Right frontal scalp epdermoid cyst. Visualized paranasal sinuses/mastoid: Unremarkable. Visualized orbits: Unremarkable. Head CTA: Internal carotid artery: Unremarkable ALLAN: Unremarkable ACOM: Unremarkable MCA: Unremarkable EMANATIONS ANALYSIS TECHNICIAN: Unremarkable PCOM: hypoplastic Vertebrobasilar arteries: Unremarkable Dural venous sinuses: Patent IMPRESSION: No acute intracranial abnormality. No evidence for subarachnoid hemorrhage. No evidence for major branch vessel occlusion, flow-limiting stenosis, or aneurysm in the intracranial arterial vasculature. Dr. Gayatri Medina is the dictating fellow. Finalized reports status indicates that the attending has reviewed the images and report, and agrees with the interpretation. Preliminary report status should be regarded as NOT interpreted by the attending radiologist. Workstation ID: [id number] Final Dictated by:MD Medina Chukwudi C Dictated DT/TM:10/20/2023 12:55 Resident:MD Medina Chukwudi C Signed by:MD Ozuna Danilo Signed (Electronic Signature):10/20/2023 12:54 * Exam Date Time Procedure Performing Provider Status 10/20/23 10:48 AM OO MR Head/Neck Consult Clay Lora; Final Notes: (OO MR Head/Neck Consult) Reason For Exam: SAH OO MR Head/Neck Consult EXAMINATION: OO MR Angio Head Consult, OO MR Head/Neck Consult Review of MRI brain and MR venogram of head performed at an outside institution ([facility]) 10/20/2023 time 0:25. CLINICAL HISTORY: [facility]H COMPARISON: None Technique: MRI brain with and without intravenous contrast. MR venogram of head without intravenous contrast. FINDINGS: MR Brain: Cerebral parenchyma: No focal parenchymal lesions Extra-axial spaces: No extra-axial fluid collections. In particular no subarachnoid hemorrhage identified. Ventricles: No hydrocephalus. Minimal FLAIR hyperintense signal along the frontal and occipital horns and deep white matter likely microangiopathy. Mass effect: No midline shift. Sella:Pituitary gland is grossly unremarkable. Basal cisterns and vascular flow voids: Patent Posterior fossa: Brainstem and cerebellum are unremarkable. Calvarium: Sebaceous cyst/epidermal inclusion cyst is noted in the right parietal scalp showing approximately 1.5 cm.. Visualized paranasal sinuses/mastoid: Clear Visualized orbits and skull base: Unremarkable MR venogram of head: Superior sagittal sinus: Normal in course and caliber Straight sinus: Patent Transverse sinuses: Right transverse sinus is hypoplastic with a prominent pacchionian granulation in the mid right transverse sinus.. Sigmoid sinuses: Patent Internal cerebral and basal veins: Unremarkable IMPRESSION: 1. No acute intracranial abnormality, enhancing lesion or mass effect. 2. No evidence of dural venous sinus stenosis or thrombosis. * Review of MRI brain and MR venogram of head performed at an outside institution ([facility]) 10/20/2023 time 0:25. * Review done at [facility] on 10/20/2023 time 12:10 PM. Workstation ID: [id number] Final Dictated by:MD Enamorado T Thomas Dictated DT/TM:10/20/2023 12:24 Signed by:MD Enamorado T Thomas Signed (Electronic Signature):10/20/2023 12:23 * Exam Date Time Procedure Performing Provider Status 10/20/23 10:48 AM OO MR Angio Head Consult Yessica Lora; Final Notes: (OO MR Angio Head Consult) Reason For Exam: SAH OO MR Angio Head Consult EXAMINATION: OO MR Angio Head Consult, OO MR Head/Neck Consult Review of MRI brain and MR venogram of head performed at an outside institution ([facility]) 10/20/2023 time 0:25. CLINICAL HISTORY: SAH COMPARISON: None Technique: MRI brain with and without intravenous contrast. MR venogram of head without intravenous contrast. FINDINGS: MR Brain: Cerebral parenchyma: No focal parenchymal lesions Extra-axial spaces: No extra-axial fluid collections. In particular no subarachnoid hemorrhage identified. Ventricles: No hydrocephalus. Minimal FLAIR hyperintense signal along the frontal and occipital horns and deep white matter likely microangiopathy. Mass effect: No midline shift. Sella:Pituitary gland is grossly unremarkable. Basal cisterns and vascular flow voids: Patent Posterior fossa: Brainstem and cerebellum are unremarkable. Calvarium: Sebaceous cyst/epidermal inclusion cyst is noted in the right parietal scalp showing approximately 1.5 cm.. Visualized paranasal sinuses/mastoid: Clear Visualized orbits and skull base: Unremarkable MR venogram of head: Superior sagittal sinus: Normal in course and caliber Straight sinus: Patent Transverse sinuses: Right transverse sinus is hypoplastic with a prominent pacchionian granulation in the mid right transverse sinus.. Sigmoid sinuses: Patent Internal cerebral and basal veins: Unremarkable IMPRESSION: 1. No acute intracranial abnormality, enhancing lesion or mass effect. 2. No evidence of dural venous sinus stenosis or thrombosis. * Review of MRI brain and MR venogram of head performed at an outside institution ([facility]) 10/20/2023 time 0:25. * Review done at [facility] on 10/20/2023 time 12:10 PM. Workstation ID: [id number] Final Dictated by:MD Enamorado T Thomas Dictated DT/TM:10/20/2023 12:24 Signed by:MD Enamorado T Thomas Signed (Electronic Signature):10/20/2023 12:23 Vital Signs Most recent to oldest [Reference Range]: 1 2 3 Height 120 cm (10/20/23 10:46 AM) Patient Weight 56.7 kg (10/20/23 10:46 AM) Body Mass Index 39.38 kg/m2 (10/20/23 10:46 AM) Temperature [36.5-37.9 DegC] 37.0 DegC (10/20/23 2:00 PM) 37.0 DegC (10/20/23 10:01 AM) Heart Rate 74 bpm (10/20/23 6:00 PM) 81 bpm (10/20/23 5:00 PM) 82 bpm (10/20/23 4:00 PM) Respiratory Rate 18 br/min (10/20/23 6:00 PM) 19 br/min (10/20/23 5:00 PM) 18 br/min (10/20/23 4:00 PM) Blood Pressure 111/63mmHg (10/20/23 6:00 PM) 109/63mmHg (10/20/23 5:00 PM) 120/64mmHg (10/20/23 4:00 PM) Mean Blood Pressure 78 mmHg (10/20/23 6:00 PM) 76 mmHg (10/20/23 5:00 PM) 79 mmHg (10/20/23 4:00 PM) Cuff Pulse Pressure 48 mmHg (10/20/23 6:00 PM) 46 mmHg (10/20/23 5:00 PM) 56 mmHg (10/20/23 4:00 PM) BP Location # 1 Left Arm (10/20/23 4:00 PM) Left Arm (10/20/23 2:00 PM) Left Arm (10/20/23 11:00 AM) Social History Social History Type Response Smoking Status Never smoked cigaret juanjose Sex Female Sex Representation Female (finding) Neurology Consult note * DO Knutson Joseph Phu Thanh: MODIFY DO Knutson Joseph Phu Thanh: MODIFY, MODIFY, PERFORM, MODIFY Event Display: Neurology Consult Authored Date: Chief Complaint Pre-arrival: pt reports having onset of insomnia/severe fatigue since July; has had LP/MRI for MS w/u but SOFIA/photosensitivity increased adn went to ER-MRI discovered Subarachnoid Hemorrhage Reason for Consultation Ongoing outpatient MS work up History of Present Illness Addie Smith is a 63yo ambidexterous F who reports having ongoing treatment for chronic Lyme's disease at [facility],and supports having insomnia,but does notdiscloseadditionalconditions (bipolar disorder is documented in our chart; patientdoes not appear to be on medicationforthis condition)who presents to the emergency department as an ED to ED transfer to assess for poss ible subarachnoid hemorrhage. Neurology consultedas patient has an ongoing [facility]. History obtained from patient. She states that she was initially diagnosed with Lyme disease in 2019, and continues to require p.o. doxycyclineas well as several supplements for treatment of chronic Lyme. She denies ever having IV doxycycline. She states that at the start of the began to feel unwell with first symptom being insomnia. She is presentlyprescribed both Valium and Ativan to utilize for assistance in sleep. She states that she often feels "ill"and is if"I have cytokines running through my system." She denies fevers but states that she has felt poorly throughout most of the summer. She states that in September her outpatient neurologist got an MRI that showed some FLAIR changesto the occipital hornswhich prompted her to get a lumbar puncture at the start of this week. Following lumbar puncture patient hadneck pain which she states was muscle spasm and muscle discomfortas well as headache with photophobiaandwhooshing sound in her right ear. Patient presented to outside hospital for same,and MRI was obtainedwith concern for subarachnoid hemorrhage. Patient transferred as an ED to ED transfer. Imaging reviewed by neurosurgery and radiologywithout subarachnoid hemorrhagepresent per their review. No further intervention indicated from this standpoint per neurosurgery. Neurosurgery recommended neurology consult given patient's ongoing outpatient MS workup. The emergency department has provided patient witha migraine cocktail and she presently states that her headachehas almost entirely resolved. Herprimary concernis her ongoingfeeling of beinglow energy and not herself. Patient denies unil ateral weakness, changes in sensation, numbness/tingling, changes in balance or coordination, changes in vision, changes in speech, difficulty swallowing, and changes in bowel or bladder function. Patient states that she has never had "the classicMS symptoms." She supports that the main reasonthis workup is being pursuedis given imaging findings on her MRI in September. MRIappears to have been an MRI brain without contrast. Results of lumbar puncture are unavailable at this time. Review of Systems Denies chest pain Denies SOB Denies abdominal pain Physical Exam Vitals & Measurements T:37.0C HR:67(Monitored) RR:18 BP:111/67 SpO2:97% Oxygen Therapy:Room Air WT:56.700kg(Dosing) WT:56.7kg Input and Output - Last 24 hours (Last 8 hours) Total In: 1004 (1004) Total Out: 0 (0) Total Balance: 1004 (1004) MED INTAKE:1004 (1004) General: NAD, lying comfortably in bed HEENT Head:normocephalic, atraumatic Eyes: no erythema or drainage noted Mouth:MMM Neck: supple CV:RRR on monitor Pulm:non labored Neurology Exam: Mental status: alert and oriented to person, place, time, and situation,able to follow2 step commands. Speech isfluent without dysarthria or aphasia. Naming, and repetitionare intact. Attention, andconcentration, registration are intact. Judgement and abstract thinking are intact CN: Visual camargo are full to finger counting.EOMIwithout nystagmus. PERRL.Facial sensation to light touch intact in V1-V3 distributionb/l. Face symmetric. Hearing grossly intact. Uvula midline, palate rises symmetrically, and tongue midline without deviations, weakness, or noted fasciculations. Shoulder shrug is full. Motor: normal tone and muscle bulk RUE5/5 throughout LUE5/5 throughout RLE5/5 throughout LLE5/5 throughout Sensory: sensation to light and sharp touch intact and equal b/l for UEs and LEs Coordination: finger to nose intact b/l without ataxia Reflex: no clonus elicited Gait:deferred 2/2 safety concerns Diagnostic Results (10/20/2023 11:[address] Angio Brain/Head) FINDINGS: Head CT: Cerebral parenchyma: Normal sawyer-white differentiation. No hemorrhage. Extra-axial spaces: No extra-axial collection. Ventricles: No hydrocephalus. Mass effect: None. Basal cisterns: Preserved. Posterior fossa: No tonsillar herniation. Calvarium: Intact. Right frontal scalp epdermoid cyst. Visualized paranasal sinuses/mastoid: Unremarkable. Visualized orbits: Unremarkable. Head CTA: Internal carotid artery: Unremarkable ALLAN: Unremarkable ACOM: Unremarkable MCA: Unremarkable EMANATIONS ANALYSIS TECHNICIAN: Unremarkable PCOM: hypoplastic Vertebrobasilar arteries: Unremarkable Dural venous sinuses: Patent IMPRESSION: No acute intracranial abnormality. No evidence for subarachnoid hemorrhage. No evidence for major branch vessel occlusion, flow-limiting stenosis, or aneurysm in the intracranial arterial vasculature. [1] (10/20/2023 10:48 EDT OO MR Angio Head Consult) FINDINGS: MR Brain: Cerebral parenchyma: No focal parenchymal lesions Extra-axial spaces: No extra-axial fluid collections. In particular no subarachnoid hemorrhage identified. Ventricles: No hydrocephalus. Minimal FLAIR hyperintense signal along the frontal and occipital horns and deep white matter likely microangiopathy. Mass effect: No midline shift. Sella:Pituitary gland is grossly unremarkable. Basal cisterns and vascular flow voids: Patent Posterior fossa: Brainstem and cerebellum are unremarkable. Calvarium: Sebaceous cyst/epidermal inclusion cyst is noted in the right parietal scalp showing approximately 1.5 cm.. Visualized paranasal sinuses/mastoid: Clear Visualized orbits and skull base: Unremarkable MR venogram of head: Superior sagittal sinus: Normal in course and caliber Straight sinus: Patent Transverse sinuses: Right transverse sinus is hypoplastic with a prominent pacchionian granulation in the mid right transverse sinus.. Sigmoid sinuses: Patent Internal cerebral and basal veins: Unremarkable IMPRESSION: 1. No acute intracranial abnormality, enhancing lesion or mass effect. 2. No evidence of dural venous sinus stenosis or thrombosis. * Review of MRI brain and MR venogram of head performed at an outside institution ([facility]) 10/20/2023 time 0:25. * Review done at [facility] on 10/20/2023 time 12:10 PM. [2] Assessment/Plan Addie Smith is a 63yo ambidexterous F who reports having ongoing treatment for chronic Lyme's disease at [facility],and supports having insomnia,but does notdiscloseadditionalconditions (bipolar disorder is documented in our chart; patientdoes not appear to be on medicationforthis condition)who presents to the emergency department as an ED to ED transfer to assess for poss ible subarachnoid hemorrhage. Neurology consultedas patient has an ongoing outpatient [facility]with [facility]. On exam patient does not have any focal neurologic deficits and supportssymptoms resolving with migraine cocktail. As there is no deficitto suggest active MS flare,there is no rolefor emergentor inpatientMS workup at this time. We recommend the patient continue to work with her outpatient providers. Defer rest of workup to primary team. Neurology will sign off at this time. The physician assistant front end manager, Mey Hartman PA-C, spent53 minutes of discrete time performing the activities of this visit. The supervising physician spent9 minutes of discrete time performing the activities of this visit. The total visit time includes 11 minutes of shared time between the BOWEN and physician. Activities include: Xreview of the medical record X obtaining a history X physical exam/evaluation _ counseling/educating patient/family/caregiver _ discussion/referral to other healthcare professional X documenting care in the medical record X independent interpretation of results X communication of results to patient/family/caregiver _ coordination of care This patient wasseen independently and discussed withsupervising physician, Dr.Joseph Zenia DO. Attestation Attending Physician's Attestation I discussed this patient with Mey Hartman and I did not see this patient. Chart anddata reviewed.I have confirmed and agree with the note above. Hi Knutson, Problem List/Past Medical History Ongoing Arthralgia Bipolar disorder Cervicalgia Exercise induced bronchospasm Fatigue Lyme disease Muscle spasm Nevus Resolved Sherwood's palsy Procedure/Surgical History Polypectomy| Service Date: 08/01/2016PAP test date| Service Date: 05/03/2016Endometrial biopsy| Service Date: 05/02/2016US EXAM PELVIC COMPLETE| Service Date: 04/12/2016Shave biopsy| Service Date: 09/10/2015 Medications Home albuterol(albuterol CFC free 90 mcg/inh MDI), 2 puff, inhaled, qid, PRN, 3 refills cholecalciferol(Vitamin D3 2000 intl units oral capsule), 2000 Int_Unit= 1 cap, PO, Daily clonazePAM(KlonoPIN 0.5 mg oral tablet), See Instructions, PRN, 1 refills cranberry(Cranberry) ibuprofen(ibuprofen 200 mg oral tablet), 400 mg= 2 tab, PO, q6h, PRN magnesium aspartate omega-3 polyunsaturated fatty acids(EPA Fish Oil oral capsule), 1 cap, PO, Daily turmeric(turmeric 500 mg oral capsule) Allergies BactrimNightmares Social History Smoking Status Never smoked cigarettes Alcohol - Denies Alcohol Use Employment/School Status:Employed Description:teaches and writes book Home/Environment Lives with:Children, Spouse Feels unsafe at home:No Substance Abuse - Denies Substance Abuse Tobacco - Denies Tobacco Use Family History Asthma: Son. Crohn's disease: Father. Eczema: Son. Lupus..: Daughter. Lyme Disease: Daughter. Rheumatoid arthritis: MGM. Thyroid cancer: Sister. Health Status Family Member(s) Mother: History is negative Lab Results Test Name Test Result Date/Time WBC 6.01 K/uL 10/20/2023 10:45 EDT Hgb 12.9 g/dL 10/20/2023 10:45 EDT Hct 38.2 % 10/20/2023 10:45 EDT Plts 268 K/uL 10/20/2023 10:45 EDT CReacProt <0.30 mg/dL 10/20/2023 10:45 EDT ESR 5 mm/hr 10/20/2023 10:45 EDT [1]CT Angio Brain/Head; MD Ozuna Danilo 10/20/2023 11:41 EDT [2]OO MR Angio Head Consult; MD Enamorado T Thomas 10/20/2023 10:48 EDT Electronic Signature on File Electronically Reviewed/Signed by: Mey Hartman PA-C Department of Neurology Electronically Reviewed/Signed by: Hi Knutson DO Cosigner Signature Dt/Tm: 407:54 PM Department of Neurology GC Patient Care team information Care Team Personnel Name: DO Mulligan Regina W Position: Referring Member Role: Primary Care Provider Address: [address] [place] [address] Name: TRINIDAD Watson, Carmen Position: RN Member Role: Direct Care Nurse Name: DO Nova Adrian Scott Position: Physician - [facility] Address: [address] [place] [address] [place] Name: DO Centeno Michael R Position: Physician - [facility] Member Role: * Quality Review (1 day after created) Address: [address] [place] [address] [place] Name: MD Rogers, Madisyn Position: Resident Member Role: * Quality Review (1 day after created) Address: [address] [place] [address] [place] Name: MD Abiel, Jade Position: Resident Member Role: * Quality Review (1 day after created) Address: [address] [place] [address] Care Team Related Persons Name: HENRIK FRANKLIN Name: MELISA SMITH
[2023-11-08] MEDS: diazePAM 5 MG TABLET PO PRN (10:46)
[2023-11-08] MEDS: ESCITALOPRAM OXALATE 10 MG TAB PO SCH (14:52)
[2023-11-08] MEDS: diazePAM 5 MG TABLET PO SCH ×2 (14:54→21:16)
[2023-11-08] MEDS ORDERED: ALBUTEROL HFA 8 GM INHALER INH PRN (17:03)
--- NOTE | 2023-11-08 17:03 | History & Physical ---
Date of Service November 08, 2023 Impression / Recommendations Impression Addie Hatch is a domiciled with , employed 63-year-old white female history of depression, anxiety, posttreatment Lyme disease syndrome who presents with complaints of worsening insomnia and anxiety symptoms. Presented with her daughter after lack of improvement with outpatient psychiatric management. She was admitted on 11/07/23 23:49 on a 201 voluntary commitment for anxiety, insomnia. Patient presents a complicated history of neuropsychiatric manifestations that have persisted past her initial Lyme disease infection. She presents a prolonged course of her infection with multiple past treatments. There is concern for underlying medical contributions to depression and anxiety. She presents treatment refractory insomnia, physical symptoms of anxiety and appears to be in a major depressive episode. She presents a distant history of a major depressive episode similarly after a infection. Labs reviewed: CBC, CMP, TSH, UA, UDS, blood alcohol level within expected limits. EKG of 66 bpm with a QTc of 425 ms. Medication history reviewed and will schedule multi regimen approach to address insomnia. We will retrial an SSRI; medication side effects and adverse effects discussed with the patient and she is agreeable. Patient would likely benefit from an in-person sleep study, neurology follow-up. MNPR due to severe anxiety and hyperarousal to excess stimulation Overall, I spent a total of 90 minutes with this case including review of chart records, nursing report, review of lab work, direct evaluation of the patient at bedside, counseling the patient, multidisciplinary team meeting, orders, and documentation in the electronic health record. (1) MDD (major depressive disorder), recurrent episode, severe: (2) Generalized anxiety disorder with panic attacks: (3) Insomnia: Insomnia type: unspecified Qualified Code(s): G47.00 - Insomnia, unspecified (4) Cognitive and neurobehavioral dysfunction: (5) Anxiety disorder due to medical condition: (6) Post-Lyme disease syndrome: Plan 11/08/2023:The patient was admitted to the [facility] ([facility] unit) on q15 min checks (behavioral with suicide precautions) for safety. The patient will participate in group, recreational, and milieu therapies and will be offered additional individual and family sessions as clinically appropriate. Schedule Valium 2.5 mg twice daily in the morning and afternoon, Valium 5 mg at bedtime Ambien 10 mg at bedtime Trazodone 50 mg at bedtime Escitalopram 2.5 mg daily Lorazepam 1 mg every 6 hours p.o. as needed for anxiety Inventory Assets Strengths: family support, financial support Needs: cognitive improvement, outpatient neurology and sleep f/u Suicide Risk Level Suicide Risk Level: Moderate (q15 min suicide checks) Risk Factors Assessment Male: No : Yes Do You Have Access To A Gun?: No Health Problems: Yes Mental Health Diagnoses: Yes Substance Use Disorders: No Previous Attempt: No Family History of Suicide: No Previous Psychiatric Hospitalization: No Hopelessness: Yes Protective Factors Assessment Sabianism Beliefs: No : Yes Responsible for Young Children: No Employed: Yes Stable Relationships: Yes Supportive Family: Yes Good Rapport with Provider: Yes Absence of Any Risk Factors Above: No Psychiatric History Identifying Data Addie Hatch is a domiciled with , employed 63-year-old white female history of depression, anxiety, posttreatment Lyme disease syndrome who presents with complaints of worsening insomnia and anxiety symptoms. Presented with her daughter after lack of improvement with outpatient psychiatric management. She was admitted on 11/07/23 23:49 on a 201 voluntary commitment for anxiety, insomnia. Chief Complaint "Was not functioning normally" History of Present Illness Patient reports on July 20 she was functioning well before however presented with severe insomnia with difficulty falling and staying asleep and not feeling rested. Associated cognitive dysfunction and increased physical anxiety symptoms. Said this was proceeded with a flulike reaction. Reports initially getting Lyme's disease in 2019 and had symptoms of Sherwood's palsy, loss of taste, anxiety, depression. Was treated with doxycycline for 4.5 months. 8 months later continue to test positive for Lyme's and was given Ceftin and dapsone. Reports getting tinnitus from dapsone. At the end of 2020 ports Lyme titers decreased. At this time psych symptoms improved. 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 In summer 2021 she complained of increasing fatigue without insomnia. This was temporary and resolved. In fall 2022 she presented with joint inflammation. In September of this year she received an MRI which shows generalized inflammation. She received a lumbar puncture which was inconclusive. There was concern for a traumatic lumbar puncture and possible brain involvement and she was taken to [facility]. She reports getting IV medication at that time including metoclopramide and dexamethasone and reports symptoms improved greatly for a day and then returned. Patient reports outpatient management has not been effective. Was taking nightly gabapentin 300 mg, Valium 5 mg, mirtazapine 15 mg, Ambien 10 mg at bedtime and had limited effect. She called her daughter with her concerns and daughter recommended inpatient stay. Complains of ongoing insomnia; has not gotten a sleep study. Complains of physical anxiety of uneasiness, muscle tingling, shortness of breath, fear of . Reports symptoms have been consistent through the day. Denies associated increase in heart rate or sweating. Reports having low mood, poor concentration, poor energy, increased hopelessness, poor self-esteem, blames self for what happened. Denies excess guilt. Complains of crying spells. Denies angry outbursts or increased irritability. Reports hyperarousal to bright lights. Complains of passive suicidal ideation; denies active intent. Reports in 1994 had a severe influenza infection. It resulted in depression and panic attacks with insomnia. She was on fluoxetine and Klonopin for 13 years and was effective. She then stopped the medication and did not have depression or anxiety problems until her Lyme disease infection. Medication history reviewed with the patient: Past trial of Zoloft at 25 mg however reports "increased adrenaline" once it was increased to 50. Past Seroquel for sleep and reports "felt like I was on fire". Other past medications include Trileptal, Vistaril, BuSpar, Klonopin (distant history), Xanax (wore off too quickly), Restoril, Ambien, Lunesta, melatonin, clonidine, gabapentin (no benefit). Social history: Patient reports previously being high functioning and would be able to dedicate 10 to 12 hours a day towards her projects. Currently writes and sells books. Lives with her and 3 cats. Has 4 children. Reports growing up near [place] and had a good childhood; denies physical, sexual, emotional abuse. Reports her younger sister has a mood condition; denies other family psychiatric history. Denies alcohol and drug use. Past Psychiatric History Current Psychiatric Diagnosis: MARCIA Do You Have Access To A Gun?: No History of Previous Suicide Attempt: No Allergies Allergy/AdvReac Type Severity Reaction Status Date / Time Bactrim AdvReac Intermediate NIGHTMARES Verified 08/01/16 06:39 sulfamethoxazole [Bactrim] AdvReac Intermediate NIGHTMARES Verified 08/31/23 13:55 trimethoprim [Bactrim] AdvReac Intermediate NIGHTMARES Verified 08/31/23 13:55 Home Medications Medication Instructions Recorded Confirmed Type cholecalciferol (vitamin D3) 50 50 mcg PO DAILY ##0 06/22/16 11/07/23 History mcg (2,000 unit) tablet (Vitamin D3) omega [id number]-fish oil 1,000 mg 1 cap PO DAILY ##0 06/22/16 11/07/23 History (120 mg-180 mg) capsule (Fish Oil) clonidine HCl 0.1 mg tablet 0.05 mg PO BID 08/12/23 11/07/23 History progesterone micronized 100 mg 100 mg PO HS 08/12/23 11/07/23 History capsule vitamin B complex 1 tab PO DAILY 08/12/23 11/07/23 History zolpidem 5 mg tablet 5 - 10 mg PO HS PRN Sleep 08/12/23 11/07/23 History mirtazapine 30 mg tablet 15 mg PO HS 08/29/23 11/07/23 History Arches Tinnitus formula 2 cap PO DAILY 08/31/23 11/07/23 History citicoline 500 mg capsule 250 mg PO DAILY 08/31/23 11/07/23 History gabapentin 100 mg capsule 300 mg PO HS 08/31/23 11/07/23 History magnesium chelate, malate 400 mg PO DAILY 08/31/23 11/07/23 History diazepam 5 mg tablet 5 mg PO BID PRN Anxiety 11/07/23 11/08/23 History doxycycline hyclate 100 mg capsule 100 mg PO BID 11/07/23 11/07/23 History albuterol sulfate 90 mcg/actuation 1 puff inhalation Q4 PRN Shortness 11/08/23 11/08/23 History aerosol inhaler Of Breath cefuroxime axetil 500 mg tablet 500 mg PO BID 11/08/23 11/08/23 History Family History Family History of: None Alcohol History Hx of Alcohol Use Over the Past 12 Months: No AUDIT Total Score: 0 Smoking Use Have You Smoked or Used Tobacco Products in the Last 30 Days: No Smoking Status: Never smoker Substance History Hx of Prescription Med Misuse Over the Past 12 Months: No Hx of Over the Counter Med Misuse Over the Past 12 Months: No Hx of Inhalent Misuse Over the Past 12 Months: No Hx of Organic Substance Use Over the Past 12 Months: No Hx of Illegal Substances/Street Drug Use Over Past 12 Months: No Problems as a Result of Past Substance Use: None Identified Personal History Living Arrangements: Home Highest Grade Completed: College Beliefs That Will Affect Care: None Patient History Surgical History H/O oral surgery Family History Sister Thyroid ca Father Crohn's disease Daughter Lupus Social History Smoking Status: Never smoker Second Hand Exposure: No; Do You Dip or Chew Tobacco: No; Hx Alcohol Use: No Preferred Language: Maltese Communication Ability: Effective Survey Superintendent Required: No Beliefs That Will Affect Care: None Feels Safe at Home: Yes Gender Identity: Female Assistive Devices: Glasses Physical Exam Mental Examination: Appearance: Well Groomed Eye Contact: Diverts Contact Motor Behavior: Restless and Slowed Speech: Rambling Mood: Anxious and Sad Affect: Congruent Thought Process: Intact and Linear Thought Content: Intact Hallucinations: None Insight: Fair Judgement: Fair Vital Signs (Past 24 Hours): Last Vital Signs Temp 36.7 C 11/08/23 06:42 Pulse 71 11/08/23 06:42 Resp 16 11/08/23 06:42 BP 130/80 11/08/23 06:42 Pulse Ox 97 11/08/23 01:19 O2 Del Method Room Air 11/08/23 01:19 Exam Statement: A physical exam was performed in the ED for the purposes of medical clearance. I accept that physical as correct and adequate for the purposes of the inpatient physical exam. Results & Data ([facility]) Laboratory Results Laboratory Results - last 24 hr 11/07/23 11/07/23 11/07/23 17:34 19:00 19:02 WBC 7.14 RBC 4.26 Hgb 12.8 Hct 38.3 MCV 89.9 MCH 30.0 MCHC 33.4 RDW Std Deviation 42.1 RDW Coeff of Nadege 12.9 Plt Count 317 MPV 9.1 L Immature Gran % (Auto) 0.4 Neut % (Auto) 68.4 Lymph % (Auto) 24.2 [place]in[place] % (Auto) 5.0 Eos % (Auto) 1.4 Baso % (Auto) 0.6 Neut # (Auto) 4.88 Lymph # (Auto) 1.73 [place]in[place] # (Auto) 0.36 Eos # (Auto) 0.10 Baso # (Auto) 0.04 Immature Gran # (Auto) 0.03 Sodium 139 Potassium 3.6 Chloride 104 Carbon Dioxide 27 Anion Gap 8 BUN 21 Creatinine 0.71 Est Cr Clr Drug Dosing 66.7 Est GFR ( Amer) 106.5 Est GFR (Non-Af Amer) 91.9 BUN/Creatinine Ratio 29.6 H Glucose 110 H Calcium 9.5 Total Bilirubin 0.3 AST 20 ALT 16 Alkaline Phosphatase 44 Total Protein 7.4 Albumin 4.5 Globulin 2.9 Albumin/Globulin Ratio 1.6 TSH 0.973 Urine Color Yellow Urine Appearance Clear Urine pH 7.0 Ur Specific [place] 1.013 Urine Protein Negative Urine Glucose (UA) Negative Urine Ketones Negative Urine Blood Trace H Urine Nitrite Negative Urine Bilirubin Negative Urine Urobilinogen Negative Ur Leukocyte Esterase Negative Urine WBC (Auto) 0-5 Urine RBC (Auto) 6-10 H U Hyaline Cast (Auto) 0-2 U Epithel Cells (Auto) 0-2 Urine Bacteria (Auto) None Seen Salicylates < 3.0 L Urine Opiates Screen Neg Ur Methadone, Qual Neg Urine Fentanyl Screen Neg Acetaminophen < 3 L Urine Barbiturates Neg Ur Phencyclidine (PCP) Neg U Amphetamin/Meth Scrn Neg MDMA (Ecstasy) Screen Neg U OH-Alprazolam Confrm Pending U Benzodiazepines Scrn Pos H 7-Amino Clonazepam Pending Ur Nordiazepam Confirm Pending U OH-ethylflurazepam Pending U Lorazepam Cnf GC/MS Pending U Oxazepam Confm GC/MS Pending Ur Temazepam Confirm Pending U OH-Triazolam Confirm Pending U OH-Midazolam Confirm Pending Ur Cocaine Metabolite Neg U Marijuana (THC) Screen Neg Drug Screen Comment Pending Ethyl Alcohol mg/dL < 10.0 SARS-CoV-2, RNA, NAAT NEGATIVE Current Inpatient Medications Current Inpatient Medications: Current Inpatient Medications Acetaminophen (Acetaminophen 325 Mg Tab) 650 mg PO Q4H PRN PRN Reason: Headache or Minor Fever Stop: 12/07/23 23:54 Last Admin: 11/08/23 12:54 Dose: 650 mg Al Hydrox/Mg Hydrox/Simethicone (Aluminum/Magnesium Susp 30 Ml Udc) 30 ml PO Q4H PRN PRN Reason: GI Upset Stop: 12/07/23 23:54 Bismuth Subsalicylate (Bismuth Subsalicylate Liqd 236 Ml) 15 ml PO PRN PRN PRN Reason: Loose Stool Stop: 12/07/23 23:54 Diazepam (Diazepam 5 Mg Tablet) 2.5 mg PO BID@0800,1300 JHONY Stop: 12/08/23 13:59 Last Admin: 11/08/23 14:54 Dose: 2.5 mg Diazepam (Diazepam 5 Mg Tablet) 5 mg PO HS JHONY Stop: 12/08/23 21:59 Escitalopram Oxalate (Escitalopram Oxalate 10 Mg Tab) 2.5 mg PO QAM JHONY Stop: 12/08/23 13:59 Last Admin: 11/08/23 14:52 Dose: 2.5 mg Hydroxyzine HCl (Hydroxyzine Hcl 25 Mg Tab) 50 mg PO HSZ PRN PRN Reason: Insomnia Stop: 12/07/23 23:54 Last Admin: 11/08/23 02:39 Dose: 50 mg Hydroxyzine HCl (Hydroxyzine Hcl 25 Mg Tab) 25 mg PO Q4H PRN PRN Reason: Anxiety Stop: 12/07/23 23:54 Lorazepam (Lorazepam 1 Mg Tab) 1 mg PO Q6H PRN PRN Reason: Anxiety Stop: 12/08/23 13:46 Magnesium Hydroxide (Magnesium Hydroxide Susp 30 Ml Udc) 30 ml PO DAILY PRN PRN Reason: Constipation Stop: 12/07/23 23:54 Sodium Chloride (Sodium Chloride 0.65% Na Soln 45 Ml (Hall)) 1 - 2 sprays NA PRN PRN PRN Reason: Nasal Dryness/Congestion Stop: 12/07/23 23:54 Trazodone HCl (Trazodone Hcl 50 Mg Tab) 50 mg PO HS JHONY Stop: 12/08/23 21:59 Zolpidem Tartrate (Zolpidem Tartrate 5 Mg Tab) 10 mg PO HS JHONY Stop: 12/08/23 21:59
[2023-11-08] MEDS: ZOLPIDEM TARTRATE 5 MG TAB PO SCH (21:15)
[2023-11-08] MEDS: traZODone HCL 50 MG TAB PO SCH (21:16)
[2023-11-08] MEDS ORDERED: TEMAZEPAM 15 MG CAPSULE PO SCH (22:00)
[2023-11-09] MEDS: LORazepam 1 MG TAB PO PRN (04:05)
[2023-11-09] MEDS: CHOLECALCIFEROL 25 MCG (1000 UNITS) TAB PO SCH (08:59)
[2023-11-09] MEDS: IBUPROFEN 200 MG TAB PO PRN (11:36)
[2023-11-09] MEDS: ESCITALOPRAM OXALATE 10 MG TAB PO ONE (12:50)
--- NOTE | 2023-11-09 13:37 | Discharge Summary ---
Date of Service November 09, 2023 History of Present Illness Patient reports on July 20 she was functioning well before however presented with severe insomnia with difficulty falling and staying asleep and not feeling rested. Associated cognitive dysfunction and increased physical anxiety symptoms. Said this was proceeded with a flulike reaction. Reports initially getting Lyme's disease in 2019 and had symptoms of Sherwood's palsy, loss of taste, anxiety, depression. Was treated with doxycycline for 4.5 months. 8 months later continue to test positive for Lyme's and was given Ceftin and dapsone. Reports getting tinnitus from dapsone. At the end of 2020 ports Lyme titers decreased. At this time psych symptoms improved. 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 In summer 2021 she complained of increasing fatigue without insomnia. This was temporary and resolved. In fall 2022 she presented with joint inflammation. In September of this year she received an MRI which shows generalized inflammation. She received a lumbar puncture which was inconclusive. There was concern for a traumatic lumbar puncture and possible brain involvement and she was taken to [facility]. She reports getting IV medication at that time including metoclopramide and dexamethasone and reports symptoms improved greatly for a day and then returned. Patient reports outpatient management has not been effective. Was taking nightly gabapentin 300 mg, Valium 5 mg, mirtazapine 15 mg, Ambien 10 mg at bedtime and had limited effect. She called her daughter with her concerns and daughter recommended inpatient stay. Complains of ongoing insomnia; has not gotten a sleep study. Complains of physical anxiety of uneasiness, muscle tingling, shortness of breath, fear of . Reports symptoms have been consistent through the day. Denies associated increase in heart rate or sweatin g. Reports having low mood, poor concentration, poor energy, increased hopelessness, poor self-esteem, blames self for what happened. Denies excess guilt. Complains of crying spells. Denies angry outbursts or increased irritability. Reports hyperarousal to bright lights. Complains of passive suicidal ideation; denies active intent. Reports in 1994 had a severe influenza infection. It resulted in depression and panic attacks with insomnia. She was on fluoxetine and Klonopin for 13 years and was effective. She then stopped the medication and did not have depression or anxiety problems until her Lyme disease infection. Medication history reviewed with the patient: Past trial of Zoloft at 25 mg however reports "increased adrenaline" once it was increased to 50. Past Seroquel for sleep and reports "felt like I was on fire". Other past medications include Trileptal, Vistaril, BuSpar, Klonopin (distant history), Xanax (wore off too quickly), Restoril, Ambien, Lunesta, melatonin, clonidine, gabapentin (no benefit). Social history: Patient reports previously being high functioning and would be able to dedicate 10 to 12 hours a day towards her projects. Currently writes and sells books. Lives with her and 3 cats. Has 4 children. Reports growing up near [place] and had a good childhood; denies physical, sexual, emotional abuse. Reports her younger sister has a mood condition; denies other family psychiatric history. Denies alcohol and drug use. Physical Exam Mental Examination Appearance: Well Groomed Eye Contact: Diverts Contact Motor Behavior: Restless and Slowed Speech: Rambling Mood: Anxious and Sad Affect: Congruent Thought Process: Intact and Linear Thought Content: Intact Hallucinations: None Insight: Fair Judgement: Fair Vital Signs (Past 24 Hours) Last Vital Signs Temp 36.9 C 11/09/23 06:34 Pulse 88 11/09/23 06:34 Resp 16 11/09/23 06:34 BP 106/67 11/09/23 06:34 Pulse Ox 97 11/08/23 01:19 O2 Del Method Room Air 11/08/23 01:19 Principal Diagnosis MARCIA with panic attacks Psychiatric Data See daily stay summary. In short, safety was maintained and the patient was cooperative with care. Medication changes included scheduling Diazepam 2.5mg BID and 5mg HS, continuing Zolpidem 10mg HS, Increasing Trazodone 100mg HS, d/c gabapentin 300mg HS, d/c mirtazapine 30mg hs, starting Escitalopram 10mg daily and they tolerated this well. Pt was provided guidance on f/u with outpatient rheumatology and neurology for further investigation into possible causes of anxiety. Day of Discharge Assessment Today the patient voices readiness for discharge. They note improvement in mood and deny thoughts to harm self or others. Thoughts remain organized and they are improved from admission. There is no evidence of psychosis. They agree to take mediations as prescribed and keep follow-up appointments. They are stable for discharge to outpatient level of care. Transition of Care Transition Of Care Record: was reviewed with the patient Advance Directives Advance Directives Information Provided: Yes Advance Directives: No Mental Health Advance Directive: No Advance Directives on File: No Living Will: No Power of Commercial Administrator: No Advance Directives Reason:: Declines as Mental Health Visit. Risk Factors Assessment Male: No : Yes Do You Have Access To A Gun?: No Health Problems: Yes Mental Health Diagnoses: Yes Substance Use Disorders: No Previous Attempt: No Family History of Suicide: No Previous Psychiatric Hospitalization: No Hopelessness: Yes Protective Factors Assessment Hindu Beliefs: No : Yes Responsible for Young Children: No Employed: Yes Stable Relationships: Yes Supportive Family: Yes Good Rapport with Provider: Yes Absence of Any Risk Factors Above: No Discharge Data Lab Results 11/07/23 11/07/23 11/07/23 17:34 19:00 19:02 WBC 7.14 RBC 4.26 Hgb 12.8 Hct 38.3 MCV 89.9 MCH 30.0 MCHC 33.4 RDW Std Deviation 42.1 RDW Coeff of Nadege 12.9 Plt Count 317 MPV 9.1 L Immature Gran % (Auto) 0.4 Neut % (Auto) 68.4 Lymph % (Auto) 24.2 [place] % (Auto) 5.0 Eos % (Auto) 1.4 Baso % (Auto) 0.6 Neut # (Auto) 4.88 Lymph # (Auto) 1.73 [place] # (Auto) 0.36 Eos # (Auto) 0.10 Baso # (Auto) 0.04 Immature Gran # (Auto) 0.03 Sodium 139 Potassium 3.6 Chloride 104 Carbon Dioxide 27 Anion Gap 8 BUN 21 Creatinine 0.71 Est Cr Clr Drug Dosing 66.7 Est GFR ( Amer) 106.5 Est GFR (Non-Af Amer) 91.9 BUN/Creatinine Ratio 29.6 H Glucose 110 H Calcium 9.5 Total Bilirubin 0.3 AST 20 ALT 16 Alkaline Phosphatase 44 Total Protein 7.4 Albumin 4.5 Globulin 2.9 Albumin/Globulin Ratio 1.6 TSH 0.973 Urine Color Yellow Urine Appearance Clear Urine pH 7.0 Ur Specific [place] 1.013 Urine Protein Negative Urine Glucose (UA) Negative Urine Ketones Negative Urine Blood Trace H Urine Nitrite Negative Urine Bilirubin Negative Urine Urobilinogen Negative Ur Leukocyte Esterase Negative Urine WBC (Auto) 0-5 Urine RBC (Auto) 6-10 H U Hyaline Cast (Auto) 0-2 U Epithel Cells (Auto) 0-2 Urine Bacteria (Auto) None Seen Salicylates < 3.0 L Urine Opiates Screen Neg Ur Methadone, Qual Neg Urine Fentanyl Screen Neg Acetaminophen < 3 L Urine Barbiturates Neg Ur Phencyclidine (PCP) Neg U Amphetamin/Meth Scrn Neg MDMA (Ecstasy) Screen Neg U Benzodiazepines Scrn Pos H Ur Cocaine Metabolite Neg U Marijuana (THC) Screen Neg Ethyl Alcohol mg/dL < 10.0 SARS-CoV-2, RNA, NAAT NEGATIVE Hospital Course (1) MDD (major depressive disorder), recurrent episode, severe: (2) Generalized anxiety disorder with panic attacks: (3) Insomnia: (4) Cognitive and neurobehavioral dysfunction: (5) Anxiety disorder due to medical condition: (6) Post-Lyme disease syndrome: Plan 11/08/2023:The patient was admitted to the [facility] ([facility]) on q15 min checks (behavioral with suicide precautions) for safety. The patient will participate in group, recreational, and milieu therapies and will be offered additional individual and family sessions as clinically appropriate. Schedule Valium 2.5 mg twice daily in the morning and afternoon, Valium 5 mg at bedtime Ambien 10 mg at bedtime Trazodone 50 mg at bedtime Escitalopram 2.5 mg daily Lorazepam 1 mg every 6 hours p.o. as needed for anxiety Mental Health & Subst Abuse Tx Psychiatrist Name of Psychiatrist: Brittney Castellanos) Psychiatrist's Date Of Appointment With Psychiatric Provider: 12/01/23Monday (previous appt. was on 11/22 was cancelled) Time of Appointment with Psychiatrist: 2:00PM Psychiatric Appointment Comment: If you'd like to transition to another provider, recommend [facility] Therapist Name of Therapist: None Professor Of Mathematics Name of Professor Of Mathematics: None Discharge Plan Discharge Items Patient Disposition: Home - Self-Care Reason For Visit: INSOMNIA Discharge Diagnosis: MDD (major depressive disorder), recurrent episode, severe: Generalized anxiety disorder with panic attacks: Anxiety disorder due to medical condition: Post-Lyme disease syndrome: Condition on Discharge: Fair Activity: Resume your previous activity Non-emergency contact: Primary Care Provider and Psychiatrist Call non-emergency contact if: you have any medication questions and your symptoms worsen Follow-up/Referrals: Selene Mulligan D.O. [Primary Care Provider] - Diet: Regular Addtl Attending Provider Instructions: -Take Valium 2.5mg twice daily in morning and afternoon and 5mg at bedtime -Take Ativan 1mg NEEDED for anxiety, insomnia -Take Trazodone 100mg at bedtime for sleep -Take Escitalopram 10mg daily, can be taken anytime of the day if preferred [employer] to find mental health professionals Found this Lyme disease internet network specialist in [place], [place] - [email or web address] center of southeastern [place] – [email or web address] Pending Studies at Discharge: No Stand-Alone Forms: My [facility] Market[employer], Smoking Cessation Medications and DC Order Prescriptions: New diazepam 5 mg Tablet See Rx Instructions .ROUTE .COMPLEX Qty: 45 0RF Rx Instructions: Take 2.5mg in the morning at 8am, take 2.5mg in the afternoon at 1pm, take 5mg at bedtime escitalopram oxalate 10 mg Tablet 10 mg PO QAM Qty: 30 1RF ibuprofen 400 mg tablet 400 mg PO BID Qty: 60 0RF trazodone 100 mg Tablet 100 mg PO HS Qty: 30 1RF lorazepam 1 mg Tablet 1 mg PO DAILY PRN (Reason: anxiety, insomnia) Qty: 30 0RF zolpidem 12.5 mg tablet,ext release multiphase 12.5 mg PO HS Qty: 30 0RF Continued cholecalciferol (vitamin D3) [Vitamin D3] 50 mcg (2,000 unit) Tablet 50 mcg PO DAILY Qty: 0 omega 3-pze-kuh-fish oil [Fish Oil] 1,000 mg (120 mg-180 mg) Capsule 1 cap PO DAILY Qty: 0 Arches Tinnitus formula capsule 2 cap PO DAILY Patient Comments: Contains garlic 300 mg, ginkgo biloba 60 mg and zinc 15 mg doxycycline hyclate 100 mg capsule 100 mg PO BID albuterol sulfate 90 mcg/actuation HFA aerosol inhaler 1 puff INHALATION Q4 PRN (Reason: Shortness Of Breath) cefuroxime axetil 500 mg tablet 500 mg PO BID vitamin B complex Tablet 1 tab PO DAILY progesterone micronized 100 mg capsule 100 mg PO HS citicoline 500 mg capsule 250 mg PO DAILY magnesium chelate, malate 125 mg magnesium capsule 400 mg PO DAILY Discontinued mirtazapine 30 mg tablet 15 mg PO HS diazepam 5 mg tablet 5 mg PO BID PRN (Reason: Anxiety) clonidine HCl 0.1 mg tablet 0.05 mg PO BID zolpidem 5 mg tablet 5 - 10 mg PO HS PRN (Reason: Sleep) gabapentin 100 mg capsule 300 mg PO HS Discharge Orders: Discharge Order (Routine); Ordered 11/09/23 Ordered By: Connor Leach Admission Data Admit Date/Time: 11/07/23 23:49 Attending Provider: Connor Leach Admit Provider: Connor Leach Primary Care Provider: Selene Mulligan Other Interventions: Discharge Summary Assessment (RN) Last Done: 11/09/23 13:58 PSY Interdisciplinary Discharge Planning Last Done: 11/09/23 15:30 [place] [address] D/C day mgmt > 30 min Patient Type Established History Detailed Exam Detailed Medical Decision Making High Complexity Diagnoses MDD (major depressive disorder), recurrent episode, severe F33.2 Generalized anxiety disorder with panic attacks F41.1; F41.0 Insomnia G47.00 Insomnia type: unspecified Cognitive and neurobehavioral dysfunction F09 Anxiety disorder due to medical condition F06.4 Post-Lyme disease syndrome B94.8
[2023-11-09] MEDS ORDERED: DESTROY THIS MEDICATION ONE (14:37)
[2023-11-09] MEDS ORDERED: traZODone HCL 100 MG TAB PO SCH (22:00)
[2023-11-10] MEDS ORDERED: ESCITALOPRAM OXALATE 10 MG TAB PO SCH (09:00)
[2023-11-10 12:22] LABS: 7-Aminoclonaz, Confirm NEGATIVE ng/mL (<25); Hydro-Alp Ur, GC/MS NEGATIVE ng/mL (<25); Hydroxyethylflurazepam, Conf NEGATIVE ng/mL (<50); Hydroxymidazolam Ur, GC/MS NEGATIVE ng/mL (<50); Hydroxytriazolam NEGATIVE ng/mL (<50); Lorazepam, Ur GC/MS NEGATIVE ng/mL (<50); Nordiazepam, Confirm 472 ng/mL (<50); Oxazepam Ur, GC/MS 552 ng/mL (<50); Temazepam, Confirm 473 ng/mL (<50)
--- NOTE | 2023-11-10 21:38 | Electrocardiogram Report ---
Test Reason : Blood Pressure : */* mmHG Vent. Rate : 66 BPM Atrial Rate : 66 BPM P-R Int : 148 ms QRS Dur : 76 ms QT Int : 406 ms P-R-T Axes : 66 70 10 degrees QTcB Int : 425 ms Normal sinus rhythm T wave abnormality, consider anterior ischemia Abnormal ECG When compared with ECG of 12-Aug-2023 10:14, No significant change was found Confirmed by Aamir Almanza ([id number]) on 11/10/2023 9:37:59 PM Referred By: REFERRED SELF Confirmed By: Aamir Almanza
== END 2023-11-09 16:30 | disposition home or self-care (01) | DRG 885 ==
LOC: ED 17:11 → 3S 23:41